=== PATIENT | female | born 1980 | race Caucasian/White ===

== ENCOUNTER 2021-05-20 07:35 | Emergency (ER) | payer MEDICARE, SELFPAY ==
[2021-05-20 07:45] VITALS: BP 125/80; PULSE 75; O2SAT 99
[2021-05-20 07:47] VITALS: BP 125/80; PULSE 72; RESP 15; TEMP 36.8; O2SAT 99; BMI 24.7
[2021-05-20 08:00] VITALS: PULSE 71; O2SAT 99
[2021-05-20 08:30] VITALS: PULSE 69; O2SAT 98
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
[2021-05-20 10:25] VITALS: BP 105/64; PULSE 79; RESP 16; O2SAT 100
[2021-05-20] MEDS: LIDOCAINE PATCH 1 EACH ADH..PATCH TOP (10:25)
== END 2021-05-20 10:34 | disposition home or self-care (01) ==
PROVIDERS: Emergency Provider Emergency Medicine; Family Provider Specialist; PCP Specialist
DX: M54.16 Radiculopathy, lumbar region (principal)
CPT/HCPCS: 72192; 99283; 99284

== ENCOUNTER → 2021-07-16 13:08 | Outpatient (CLI) | payer OTHER, SELFPAY ==
--- NOTE | 2021-07-16 | DI.CT.S_ITS ---
PROCEDURE: CT LUMBAR SPINE WO CON INDICATIONS: Radiculopathy, lumbar region TECHNIQUE: Noncontrast 3 mm thick sections acquired from the T12 level to the sacrum. Sagittal and coronal reformats were constructed. For radiation dose reduction, the following was used: automated exposure control. COMPARISON: [facility] , MR, LUMBAR SPINE W/O CONTRAST, 08/15/2009, 13:15. [facility], CT, L-SPINE WITHOUT CONTRAST, 06/03/2010, 10:41. FINDINGS: Image quality: Excellent. Bones: Left SI fusion is present. Hardware is intact. No visualized fractures or dislocations. No suspicious osseous lesions. There is minimal scattered appearance of degenerative disc space narrowing. Minimal disc bulges are present at L3-4, L4-5 and L5-S1. There is minimal effacement of the spinal canal at L3-4. There is minimal to mild bilateral foraminal narrowing at L4-5 in right L5-S1. Soft tissues: No retroperitoneal masses or hematomas. Visualized aorta is normal in caliber. IMPRESSION: 1. Minimal to mild scattered degenerative changes as above. Foraminal narrowing is most notable at L4-5 and L5-S1, although only minimal to mild. Dictated by: Aline Desai M.D. on 07/16/2021 at 16:44 Approved by: Aline Desai M.D. on 07/16/2021 at 16:49
== END ==
PROVIDERS: Family Provider Specialist; PCP Specialist; Referring Provider Physical Medicine & Rehabilitation Pain Medicine; Visit Provider Physical Medicine & Rehabilitation Pain Medicine
DX: M54.16 Radiculopathy, lumbar region (principal); M48.061 Spinal stenosis, lumbar region without neurogenic claudication; M48.07 Spinal stenosis, lumbosacral region
CPT/HCPCS: 72131